=== PATIENT | female | born 1995 | race Caucasian/White ===

== ENCOUNTER 2017-03-31 07:09 | Emergency (ER) | payer BC, OTHER ==
[~2017-03-31] VITALS: Ht 157.5 cm; Wt 69.0 kg
[~2017-03-31 07:09] MED LIST: LORA-446 PO
[2017-03-31] MEDS ORDERED: ONDANSETRON 2MG/ML, 2ML IVPush ONE (08:00)
[2017-03-31] MEDS ORDERED: SODIUM CHLORIDE FLUSH 10ML SYR IVF ONE (08:00)
[2017-03-31] MEDS ORDERED: FAMOTIDINE 20 MG/2 ML IVP ONE (08:00)
[2017-03-31] MEDS ORDERED: SODIUM CHLORIDE 0.9% 1,000ML IVBOLUS ONE (08:00)
[2017-03-31 08:06] LABS: HEMATOCRIT 41.8 % (34.6-47.8); HEMOGLOBIN 14.4 g/dL (11.7-16.4); WHITE BLOOD COUNT 11.6 x10^3/uL (3.4-10)
[2017-03-31] MEDS ORDERED: FAMOTIDINE 20 MG/2 ML ONE (08:06)
[2017-03-31] MEDS ORDERED: ONDANSETRON 2MG/ML, 2ML ONE (08:06)
[2017-03-31 08:17] LABS: BLOOD UREA NITROGEN 17 mg/dL (7-18)
[2017-03-31 08:23] LABS: ASPARTATE AMINO TRANSFERASE 22 U/L (15-37)
[2017-03-31 09:04] VITALS: BP 107/62
== END 2017-03-31 09:06 | disposition home or self-care (01) ==
LOC: ED 08:34
DX: R10.84 Generalized abdominal pain (principal); R11.2 Nausea with vomiting, unspecified; R19.7 Diarrhea, unspecified
CPT/HCPCS: 36415; 76700; 80053; 83690; 84703; 85025; 96361; 96374; 96375; 99285; J2405; J7030; S0028

== ENCOUNTER 2018-06-30 08:07 | Emergency (ER) | payer OTHER ==
[~2018-06-30] VITALS: Ht 160 cm; Wt 68.9 kg
[2018-06-30] MEDS ORDERED: ACETAMINOPHEN 500 MG TABLET ONE (08:32)
[2018-06-30] MEDS ORDERED: ONDANSETRON ODT 4 MG ONE (08:37)
[2018-06-30] MEDS ORDERED: PREN1TAB28 PO (08:39)
[2018-06-30] MEDS ORDERED: ONDANSETRON ODT 4 MG PO ONE (09:00)
[2018-06-30] MEDS ORDERED: ACETAMINOPHEN 500 MG TABLET PO ONE (09:00)
[2018-06-30 09:01] LABS: BASOPHILS # (AUTO) 0.09 x10^3/uL (0-0.1); BASOPHILS % (AUTO) 1 % (0-1); EOSINOPHILS # (AUTO) 0.01 x10^3/uL (0-0.4); EOSINOPHILS % (AUTO) 0 % (1-7); LYMPHOCYTES # (AUTO) 3.05 x10^3/uL (1-3.4); LYMPHOCYTES % (AUTO) 26 % (22-44); MD NO; MEAN CORPUSCULAR HEMOGLOBIN 30.5 pg (27.0-34.8); MEAN CORPUSCULAR HGB CONC 35.1 g/dL (32.4-35.8); MEAN CORPUSCULAR VOLUME 86.9 fL (80-100); MEAN PLATELET VOLUME 7.5 fL (7.4-10.4); MONOCYTES % (AUTO) 7 % (2-9); NEUTROPHILS # (AUTO) 7.97 x10^3/uL (1.8-6.8); NEUTROPHILS % (AUTO) 67 % (42-75); PLATELET COUNT 302 x10^3/uL (130-400); RED BLOOD COUNT 4.73 x10^6/uL (3.82-5.3); RED CELL DISTRIBUTION WIDTH 13.8 % (9.6-15.2)
[2018-06-30 09:13] LABS: ALBUMIN 3.6 g/dL (3.4-5.0); ANION GAP 8 mmol/L (5-15); CHLORIDE 107 mmol/L (98-107); CREATININE 0.61 mg/dL (0.55-1.02)
[2018-06-30 09:42] LABS: CULTURE INDICATED? YES; MICROSCOPIC INDICATED
[2018-06-30 11:17] VITALS: BP 99/63
== END 2018-06-30 11:19 | disposition home or self-care (01) ==
LOC: ED 10:40
DX: O23.01 Infections of kidney in pregnancy, first trimester (principal); M54.5 Low back pain; Z3A.10 10 weeks gestation of pregnancy
CPT/HCPCS: 36415; 76801; 80048; 81001; 82040; 84702; 85025; 86901; 87077; 87086; 87186; 99284; Q0162

== ENCOUNTER 2018-08-02 17:53 | Emergency (ER) | payer OTHER ==
[~2018-08-02] VITALS: Ht 160 cm; Wt 70.0 kg
[~2018-08-02 17:53] MED LIST changes: +ONDA4TAB12 PO; +PREN1TAB28 PO
[2018-08-02] MEDS ORDERED: ACETAMINOPHEN 325 MG TABLET PO ONE (18:30)
[2018-08-02 18:47] LABS: BASOPHILS # (AUTO) 0.08 x10^3/uL (0-0.1); BASOPHILS % (AUTO) 1 % (0-1); EOSINOPHILS # (AUTO) 0.11 x10^3/uL (0-0.4); EOSINOPHILS % (AUTO) 1 % (1-7); LYMPHOCYTES # (AUTO) 3.48 x10^3/uL (1-3.4); LYMPHOCYTES % (AUTO) 22 % (22-44); MD NO; MEAN CORPUSCULAR HEMOGLOBIN 30.9 pg (27.0-34.8); MEAN CORPUSCULAR HGB CONC 35.5 g/dL (32.4-35.8); MEAN CORPUSCULAR VOLUME 87.1 fL (80-100); MEAN PLATELET VOLUME 7.6 fL (7.4-10.4); MONOCYTES # (AUTO) 1.09 x10^3/uL (0.2-0.8); MONOCYTES % (AUTO) 7 % (2-9); NEUTROPHILS # (AUTO) 10.83 x10^3/uL (1.8-6.8); NEUTROPHILS % (AUTO) 70 % (42-75); PLATELET COUNT 295 x10^3/uL (130-400); RED CELL DISTRIBUTION WIDTH 14.2 % (9.6-15.2)
[2018-08-02] MEDS ORDERED: ACETAMINOPHEN 325 MG TABLET ONE (18:52)
[2018-08-02 18:55] LABS: ALBUMIN 3.2 g/dL (3.4-5.0); ANION GAP 8 mmol/L (5-15); CALCIUM 8.6 mg/dL (8.5-10.1); CHLORIDE 108 mmol/L (98-107); CREATININE 0.49 mg/dL (0.55-1.02)
--- NOTE | 2018-08-02 19:08 | NUR ---
FROM US TO ROOM AT THIS TIME
[2018-08-02] MEDS ORDERED: RHOGAM FROM BLOOD BANK 1 NOTE EA IM/IV ONE (19:30)
[2018-08-02 20:02] LABS: MICROSCOPIC NOT IND
[2018-08-02 20:08] LABS: CULTURE INDICATED? NO
--- NOTE | 2018-08-02 20:09 | NUR ---
per blood bank, type and screen is required prior to rhogam administration. md to be updated for orders.
--- NOTE | 2018-08-02 20:20 | NUR ---
new orders received for typr and screen. awaiting draw.
--- NOTE | 2018-08-02 20:52 | NUR ---
awaiting type and screen results. then rhogam to be given. dc orders received. family at bedside. call light within reach. vss.
--- NOTE | 2018-08-02 21:26 | NUR ---
PER BLOOD BANK, RHOGAM DOSE WILL NOT BE READY UNTIL APPROX 21:50.
--- NOTE | 2018-08-02 21:44 | NUR ---
AWAITING RHOGAM DOSE. PT RESTING IN ROOM WITH FAMILY. CONNECTED TO MONITOR. VSS. NO NEEDS AT THIS TIME.
[2018-08-02 22:24] VITALS: BP 117/63
[2018-08-02 22:41] VITALS: BP 105/78
--- NOTE | 2018-08-02 22:45 | NUR ---
RHOGAM ADMINISTERED WITH 2 NURSE VERIFICATION. VS MONITORED AND REMAINED STABLE. PT TOLERATED WELL. PT READY FOR DC.
== END 2018-08-02 22:50 | disposition home or self-care (01) ==
LOC: ED 22:44
DX: O20.0 Threatened abortion (principal); O99.342 Other mental disorders complicating pregnancy, second trimester; Z3A.16 16 weeks gestation of pregnancy; F41.1 Generalized anxiety disorder
CPT/HCPCS: 36415; 76815; 80048; 81003; 82040; 84702; 85025; 86850; 86900; 96372; 99284; J2790

== ENCOUNTER 2018-12-22 13:35 | Outpatient (CLI) | payer OTHER ==
[~2018-12-22] VITALS: Ht 160 cm; Wt 78.1 kg
[2018-12-22 13:50] VITALS: BP 111/65
[2018-12-22 14:35] LABS: MICROSCOPIC INDICATED
== END 2018-12-22 15:40 | disposition home or self-care (01) ==
LOC: LDOP 13:35
PROVIDERS: ATTEND Obstetrics & Gynecology
DX: O26.893 Other specified pregnancy related conditions, third trimester (principal); R10.9 Unspecified abdominal pain; Z3A.36 36 weeks gestation of pregnancy
CPT/HCPCS: 59025; 81001; 87086; 99211; G0463

== ENCOUNTER 2019-01-01 23:13 | Inpatient (IN) | payer OTHER ==
[~2019-01-01] VITALS: Ht 160 cm; Wt 78.2 kg
[2019-01-02] MEDS ORDERED: FENTANYL/BUPIV./NS/PF 250 ML EPIDCONT SCH ×2 (00:16→02:37)
[2019-01-02] MEDS ORDERED: OXYTOCIN 30U/ 0.9% NaCL 500ML 500 ML IV ONE (00:16)
[2019-01-02] MEDS ORDERED: OXYTOCIN 30U/ 0.9% NaCL 500ML 500 ML IV PRN (00:16)
[2019-01-02] MEDS ORDERED: MISOPROSTOL 25 MCG TABLET ONE (00:20)
[2019-01-02] MEDS ORDERED: ONDANSETRON 2MG/ML, 2ML IVPush PRN ×2 (00:30→03:00)
[2019-01-02] MEDS ORDERED: PENICILLIN GK 5,000,000 UNITS in DEXTROSE 5% 100 ML IVPB ONE (00:30)
[2019-01-02] MEDS ORDERED: FENTANYL PF 100 MCG/2ML IV PRN (00:30)
[2019-01-02] MEDS ORDERED: FENTANYL PF 100 MCG/2ML IVPush PRN (00:30)
[2019-01-02] MEDS ORDERED: MISOPROSTOL 25 MCG TABLET PO PRN (00:30)
[2019-01-02] MEDS ORDERED: SODIUM CITRATE/CITRIC ACID 15 ML UDC PO PRN (00:30)
[2019-01-02] MEDS ORDERED: METOCLOPRAMIDE 5 MG/ML, 2ML IVPush PRN (00:30)
[2019-01-02] MEDS ORDERED: CALCIUM CARBONATE 500 MG TAB.CHEW PO PRN (00:30)
[2019-01-02 00:48] LABS: BASOPHILS # (AUTO) 0.05 x10^3/uL (0-0.1); BASOPHILS % (AUTO) 0 % (0-1); EOSINOPHILS # (AUTO) 0.04 x10^3/uL (0-0.4); EOSINOPHILS % (AUTO) 0 % (1-7); LYMPHOCYTES # (AUTO) 2.96 x10^3/uL (1-3.4); LYMPHOCYTES % (AUTO) 24 % (22-44); MD NO; MEAN CORPUSCULAR HEMOGLOBIN 29.9 pg (27.0-34.8); MEAN CORPUSCULAR HGB CONC 33.8 g/dL (32.4-35.8); MEAN CORPUSCULAR VOLUME 88.5 fL (80-100); MEAN PLATELET VOLUME 8.4 fL (7.4-10.4); MONOCYTES # (AUTO) 1.26 x10^3/uL (0.2-0.8); MONOCYTES % (AUTO) 10 % (2-9); NEUTROPHILS # (AUTO) 8.24 x10^3/uL (1.8-6.8); NEUTROPHILS % (AUTO) 66 % (42-75); PLATELET COUNT 206 x10^3/uL (130-400); RED BLOOD COUNT 4.05 x10^6/uL (3.82-5.3); RED CELL DISTRIBUTION WIDTH 14.7 % (9.6-15.2)
[2019-01-02] MEDS: LACTATED RINGERS 1,000 ML IV SCH ×4 (01:00→05:42)
[2019-01-02] MEDS ORDERED: OXYTOCIN 30U/ 0.9% NaCL 500ML 500 ML ONE ×2 (01:05→08:21)
[2019-01-02] MEDS ORDERED: NEWBORN KIT ONE (01:05)
[2019-01-02] MEDS ORDERED: LIDOCAINE 1%, 20ML ONE (01:05)
[2019-01-02] MEDS ORDERED: MISOPROSTOL 200 MCG TABLET ONE (01:05)
[2019-01-02] MEDS ORDERED: FENTANYL PF 100 MCG/2ML ONE (01:11)
[2019-01-02] MEDS ORDERED: FENTANYL PF 500 MCG, BUPIVACAINE/PF 0.5%, 30ML 62.5 ML in SODIUM CHLORIDE 0.9% 177.5 ML EPIDCONT SCH (02:00)
[2019-01-02] MEDS ORDERED: BUPIVACAINE 0.25% ONE ×2 (02:14→02:18)
[2019-01-02] MEDS ORDERED: LIDOCAINE/PF 1.5%-EPI 1:200K, 30ML ONE (02:18)
[2019-01-02] MEDS ORDERED: FENTANYL/BUPIV./NS/PF 250 ML EPIDCONT ONE (02:18)
[2019-01-02] MEDS ORDERED: DIPHENHYDRAMINE 50 MG/ML, 1ML IVPush PRN (03:00)
[2019-01-02] MEDS ORDERED: LACTATED RINGERS 1,000 ML IVBOLUS PRN (03:00)
[2019-01-02] MEDS ORDERED: NALOXONE 0.4 MG/ML, 1ML IVPush PRN (03:00)
[2019-01-02] MEDS ORDERED: EPHEDRINE 50 MG/ML, 1ML IVPush PRN (03:00)
[2019-01-02] MEDS ORDERED: EPHEDRINE 50 MG/ML, 1ML ONE (04:25)
[2019-01-02] MEDS ORDERED: PENICILLIN GK 2,500,000 UNITS in DEXTROSE 5% 100 ML IV SCH (04:30)
[2019-01-02] MEDS ORDERED: OXYcodone/APAP 5/325MG TABLET ONE (08:21)
[2019-01-02] MEDS ORDERED: IBUPROFEN 600 MG TABLET ONE (08:21)
[2019-01-02] MEDS ORDERED: OXYTOCIN 30U/ 0.9% NaCL 500ML 500 ML IV SCH (08:23)
[2019-01-02] MEDS: IBUPROFEN 600 MG TABLET PO PRN ×3 (08:29→21:31)
[2019-01-02] MEDS: OXYcodone/APAP 5/325MG TABLET PO PRN ×2 (08:29→20:28)
[2019-01-02] MEDS ORDERED: MISOPROSTOL 200 MCG TABLET PR PRN (08:30)
[2019-01-02] MEDS ORDERED: CARBOPROST TROMETHAMINE 250 MCG/ML, 1ML IM PRN (08:30)
[2019-01-02] MEDS ORDERED: RHOGAM FROM BLOOD BANK 1 NOTE EA IM/IV ONE (08:30)
[2019-01-02] MEDS ORDERED: METHYLERGONOVINE 0.2 MG/ML IM PRN (08:30)
[2019-01-02] MEDS ORDERED: METOCLOPRAMIDE 5 MG/ML, 2ML IV PRN (08:30)
[2019-01-02] MEDS ORDERED: OXYcodone IR 5MG TABLET PO PRN (08:30)
[2019-01-02] MEDS ORDERED: ONDANSETRON 2MG/ML, 2ML IV PRN (08:30)
[2019-01-02] MEDS ORDERED: ACETAMINOPHEN 325 MG TABLET PO PRN (08:30)
[2019-01-02] MEDS: PRENATAL VIT/IRON/FA 1 EACH TABLET PO SCH (09:00)
[2019-01-02 11:15] VITALS: BP 106/66
[2019-01-02 15:14] VITALS: BP 112/76
[2019-01-02] MEDS ORDERED: DIPH,PERTUSS(ACELL),TET VAC/PF NC IM-VACC ONE (15:30)
[2019-01-02 15:50] LABS: BASOPHILS # (AUTO) 0.14 x10^3/uL (0-0.1); BASOPHILS % (AUTO) 1 % (0-1); EOSINOPHILS # (AUTO) 0.02 x10^3/uL (0-0.4); EOSINOPHILS % (AUTO) 0 % (1-7); LYMPHOCYTES # (AUTO) 2.55 x10^3/uL (1-3.4); LYMPHOCYTES % (AUTO) 15 % (22-44); MD NO; MEAN CORPUSCULAR HEMOGLOBIN 29.7 pg (27.0-34.8); MEAN CORPUSCULAR HGB CONC 33.8 g/dL (32.4-35.8); MEAN CORPUSCULAR VOLUME 87.9 fL (80-100); MEAN PLATELET VOLUME 8.2 fL (7.4-10.4); MONOCYTES % (AUTO) 5 % (2-9); NEUTROPHILS # (AUTO) 13.59 x10^3/uL (1.8-6.8); NEUTROPHILS % (AUTO) 79 % (42-75); PLATELET COUNT 177 x10^3/uL (130-400); RED BLOOD COUNT 4.06 x10^6/uL (3.82-5.3); RED CELL DISTRIBUTION WIDTH 14.9 % (9.6-15.2)
[2019-01-02 20:23] VITALS: BP 102/64
[2019-01-03 03:30] VITALS: BP 100/64
[2019-01-03] MEDS: PRENATAL VIT/IRON/FA 1 EACH TABLET PO SCH (07:06)
[2019-01-03] MEDS: IBUPROFEN 600 MG TABLET PO PRN ×3 (07:06→20:08)
[2019-01-03] MEDS: DOCUSATE 100 MG CAPSULE PO PRN ×2 (07:06→20:08)
[2019-01-03 07:50] VITALS: BP 107/67
[2019-01-03 20:40] VITALS: BP 121/78
[2019-01-04] MEDS: IBUPROFEN 600 MG TABLET PO PRN ×2 (02:28→08:35)
[2019-01-04] MEDS: PRENATAL VIT/IRON/FA 1 EACH TABLET PO SCH (07:59)
[2019-01-04] MEDS: DOCUSATE 100 MG CAPSULE PO PRN (07:59)
[2019-01-04 08:00] VITALS: BP 109/71
[2019-01-04] MEDS ORDERED: IBUP-1222 PO (11:49)
[2019-01-04] MEDS ORDERED: OXYC-302 PO (11:49)
[2019-01-04] MEDS ORDERED: SENN-149 PO (11:51)
== END 2019-01-04 13:25 | disposition home or self-care (01) | DRG 806 ==
LOC: LDOP 23:13 → LDIP 01-02 00:26 → 2NW 01-02 10:26
PROVIDERS: ADMIT Obstetrics & Gynecology; ATTEND Obstetrics & Gynecology
PROC: 10E0XZZ Delivery of Products of Conception, External Approach (ICD-10-PCS; principal; 2019-01-02)
PROC: 0KQM0ZZ Repair Perineum Muscle, Open Approach (ICD-10-PCS; 2019-01-02)
PROC: 3E0234Z Introduction of Serum, Toxoid and Vaccine into Muscle, Percutaneous Approach (ICD-10-PCS; 2019-01-02)
PROC: 3E0R3BZ Introduction of Anesthetic Agent into Spinal Canal, Percutaneous Approach (ICD-10-PCS; 2019-01-02)
PROC: 00HU33Z Insertion of Infusion Device into Spinal Canal, Percutaneous Approach (ICD-10-PCS; 2019-01-02)
DX: O24.420 Gestational diabetes mellitus in childbirth, diet controlled (principal); O26.873 Cervical shortening, third trimester; Z37.0 Single live birth; O47.9 False labor, unspecified; O70.1 Second degree perineal laceration during delivery; Z3A.37 37 weeks gestation of pregnancy; O26.893 Other specified pregnancy related conditions, third trimester; Z67.91 Unspecified blood type, Rh negative
CPT/HCPCS: 36415; J2790; J3490; 82962; 85025; 85461; 86850; 86900; 89060; 90715; G0378; J2540; J3010; J2590; J7120; Q0114